=== PATIENT | female | born 1970 | race Caucasian/White ===

== ENCOUNTER → 2020-08-16 | Outpatient (CLI) | payer OTHER ==
[~2020-08-16] MED LIST: ACETAMINOPHEN-1 EAC1 PO; AMOXICILLIN 50500 MG PO; CARISOPRODOL PO; COMPAZINE10 MG PO; DYRENIUM100 MG PO; FLAGYL500 MG PO; HYDROCODONE-AP1 EAC6 PO; MEDROL DOSPAK21 TA1 PO; NORCO 5-325 TA1 EACH PO; SOMA250 MG; VENTOLIN17 GM INH; XANAX PO; ZPAK PO
[2020-08-16 10:13] LABS: URINE BILIRUBIN NEGATIVE (Negative); URINE BLOOD NEGATIVE (Negative); URINE CLARITY CLEAR; URINE COLOR YELLOW; URINE GLUCOSE-RANDOM* NEGATIVE (Negative); URINE KETONES NEGATIVE (Negative); URINE LEUKOCYTES-REFLEX TRACE (Negative); URINE NITRITE-REFLEX NEGATIVE (Negative); URINE PROTEIN (DIPSTICK) NEGATIVE (Negative); URINE SPECIFIC GRAVITY 1.015 (1.005-1.035); URINE UROBILINOGEN 0.2 E.U./dl (0.2-1.0)
[2020-08-16 10:14] LABS: ABSOLUTE NEUTROPHILS 6.8 thou/uL (1.4-8.2); BASOPHILS 1.1 % (0.0-2.0); EOSINOPHILS 2.6 % (0.0-3.0); HEMATOCRIT 45.9 % (37.0-47.0); HEMOGLOBIN 15.7 gm/dL (12.0-15.0); LYMPHOCYTES 28.9 % (24.0-44.0); MCH 32.7 pg (26.0-34.0); MCHC 34.1 g/dL (28.0-37.0); PLATELET COUNT 332 thou/uL (150-400); POLYS 61.4 % (36.0-66.0); RBC 4.79 mil/uL (4.20-5.00); RDW 12.8 % (10.5-14.5)
[2020-08-16 10:25] LABS: ALBUMIN 4.2 g/dL (3.4-5.0); ANION GAP 10 mmol/L (7-16); BUN 12 mg/dL (7-18); CALCIUM 9.4 mg/dL (8.5-10.1); CHLORIDE 105 mmol/L (98-107); CHOLESTEROL 266 mg/dL (<200); CO2 26 mmol/L (21-32); CREATININE 0.7 mg/dL (0.6-1.0); GLUCOSE 96 mg/dL (74-106); HDL CHOLESTEROL 49 mg/dL (>40); LDL CHOLESTEROL 187 mg/dL (<100); POTASSIUM 4.4 mmol/L (3.5-5.1); SGOT 23 U/L (15-37); SGPT 25 U/L (30-65); SODIUM 141 mmol/L (136-145); TC:HDL 5.4 Ratio (Not establshd); TOTAL BILIRUBIN 0.4 mg/dL (0.2-1.0); TOTAL PROTEIN 7.8 g/dL (6.4-8.2); TRIGLYCERIDE 153 mg/dL (<150); VLDL 31 mg/dL (<40)
== END ==
LOC: LAB 07:48
PROVIDERS: ATTEND Family Medicine
DX: Z00.00 Encounter for general adult medical examination without abnormal findings (principal)

== ENCOUNTER → 2020-09-04 | Outpatient (CLI) | payer OTHER | LOC: MRI 08:02 | PROVIDERS: ATTEND Family Medicine | DX: M47.816 Spondylosis without myelopathy or radiculopathy, lumbar region (principal); M54.5 Low back pain ==

== ENCOUNTER → 2020-11-28 | Outpatient (CLI) | payer OTHER ==
[~2020-11-28] VITALS: Ht 162.6 cm; Wt 69.4 kg
[~2020-11-28] MED LIST changes: +ADVIL200 M3 PO; +EFFEXOR XR37.5 MG PO; +MAGNESIUM250 M1 PO; +METHOCARBAMOL500 M2 PO; +NEURONTIN 300M300 M2 PO; +OMEPRAZOLE 20 M20 M1 PO; +PERCOCET 5-3251 EACH PO; +XANAX2 MG PO; +ZANAFLEX4 MG PO
[2020-11-28 10:05] VITALS: BP 140/95
--- NOTE | 2020-11-28 10:59 | NUR ---
Pain Clinic Assessment: 1. History of Osteoarthritis: LUMBAR SPINE History of Rheumatoid Arthritis: DENIES 2. Height: 5 ft. 4 in. 162.6 cm. Weight: 153.0 lb. oz. 69.400 kg. Patient's BMI: 26.2 3. Vital Signs: BP: 140/95 Pulse: 92 Resp: 16 Temp: 02 Sat: 98 ECG Mon: 4. Pain Intensity: 4 TO 10 5. Fall Risk: Dizziness: N Needs help standing or walking: N Fallen in the last 3 months: N Fall risk comments: 6. Patient on Blood Thinner: None 7. History of Hypertension: Y 8. Opioid Therapy greater than 6 weeks: N Opiate Contract Signed: 9. Risk Assessment Tool Provided: MOD-4 10. Functional Assessment Tool: 50/70 11. Recreational Drug Use: Past greater than 3 mos Drug Type: MARIJUANA Tobacco Use: Current Every Day Smoker Tobacco Type: Cigarettes Amount or Packs/day: 1/2 PK/D How Many Years: Alcohol Use: Yes Frequency: Weekly Quant: 8
== END ==
LOC: PAIN 07:07
PROVIDERS: ATTEND Anesthesiology Pain Medicine
DX: G89.29 Other chronic pain (principal); M54.16 Radiculopathy, lumbar region; M19.90 Unspecified osteoarthritis, unspecified site; I10 Essential (primary) hypertension; F10.10 Alcohol abuse, uncomplicated; Z79.891 Long term (current) use of opiate analgesic; Z79.899 Other long term (current) drug therapy

== ENCOUNTER → 2020-12-05 | Outpatient (CLI) | payer OTHER ==
[~2020-12-05] VITALS: Ht 162.6 cm; Wt 71.4 kg
[2020-12-05 09:15] VITALS: BP 134/94
--- NOTE | 2020-12-05 09:34 | NUR ---
Pain Clinic Assessment: 1. History of Osteoarthritis: LUMBAR SPINE History of Rheumatoid Arthritis: DENIES 2. Height: 5 ft. 4 in. 162.6 cm. Weight: 157.4 lb. oz. 71.396 kg. Patient's BMI: 27.0 3. Vital Signs: BP: 134/94 Pulse: 94 Resp: 16 Temp: 02 Sat: 99 ECG Mon: 4. Pain Intensity: 5 W/ACTIVITY 5. Fall Risk: Dizziness: N Needs help standing or walking: N Fallen in the last 3 months: N Fall risk comments: 6. Patient on Blood Thinner: None 7. History of Hypertension: Y 8. Opioid Therapy greater than 6 weeks: N Opiate Contract Signed: 9. Risk Assessment Tool Provided: MOD-4 10. Functional Assessment Tool: 50/70 11. Recreational Drug Use: Past greater than 3 mos Drug Type: Tobacco Use: Current Every Day Smoker Tobacco Type: Cigarettes Amount or Packs/day: 1/2 How Many Years: Alcohol Use: Yes Frequency: Quant:
== END | disposition home or self-care (01) ==
LOC: PAIN 08:39
PROVIDERS: ATTEND Anesthesiology Pain Medicine
DX: M54.16 Radiculopathy, lumbar region (principal); M54.5 Low back pain; G89.29 Other chronic pain; I10 Essential (primary) hypertension; M19.90 Unspecified osteoarthritis, unspecified site; F32.9 Major depressive disorder, single episode, unspecified; G47.00 Insomnia, unspecified; F17.210 Nicotine dependence, cigarettes, uncomplicated; Z98.890 Other specified postprocedural states; Z79.899 Other long term (current) drug therapy; Z88.2 Allergy status to sulfonamides; Z88.8 Allergy status to other drugs, medicaments and biological substances

== ENCOUNTER → 2021-01-16 | Outpatient (CLI) | payer OTHER ==
[~2021-01-16] VITALS: Ht 162.6 cm; Wt 70.0 kg
[2021-01-16 08:16] VITALS: BP 134/92
--- NOTE | 2021-01-16 08:32 | NUR ---
Pain Clinic Assessment: 1. History of Osteoarthritis: LUMBAR SPINE History of Rheumatoid Arthritis: DENIES 2. Height: 5 ft. 4 in. 162.6 cm. Weight: 154.4 lb. oz. 70.035 kg. Patient's BMI: 26.5 3. Vital Signs: BP: 134/92 Pulse: 93 Resp: 16 Temp: 02 Sat: 98 ECG Mon: 4. Pain Intensity: 1-4 W/ACTIVITY 5. Fall Risk: Dizziness: N Needs help standing or walking: N Fallen in the last 3 months: N Fall risk comments: 6. Patient on Blood Thinner: None 7. History of Hypertension: Y 8. Opioid Therapy greater than 6 weeks: N Opiate Contract Signed: 9. Risk Assessment Tool Provided: MOD-4 10. Functional Assessment Tool: 50/70 11. Recreational Drug Use: Past greater than 3 mos Drug Type: Tobacco Use: Current Every Day Smoker Tobacco Type: Cigarettes Amount or Packs/day: < 1/2 How Many Years: Alcohol Use: Yes Frequency: Special Occasions Quant: 1-2
== END | disposition home or self-care (01) ==
LOC: PAIN 06:56
PROVIDERS: ATTEND Anesthesiology Pain Medicine
DX: M54.16 Radiculopathy, lumbar region (principal); G89.29 Other chronic pain; I10 Essential (primary) hypertension; M19.90 Unspecified osteoarthritis, unspecified site; M54.5 Low back pain; F32.9 Major depressive disorder, single episode, unspecified; F17.210 Nicotine dependence, cigarettes, uncomplicated; Z98.890 Other specified postprocedural states; Z79.899 Other long term (current) drug therapy; Z88.2 Allergy status to sulfonamides; Z88.8 Allergy status to other drugs, medicaments and biological substances

== ENCOUNTER → 2021-01-30 | Outpatient (CLI) | payer OTHER | LOC: ULTRA 11:32 | PROVIDERS: ATTEND Family Medicine | DX: N95.0 Postmenopausal bleeding (principal) ==

== ENCOUNTER → 2021-02-06 | Outpatient (CLI) | payer OTHER ==
[2021-02-06 12:52] LABS: ABSOLUTE NEUTROPHILS 9.6 thou/uL (1.4-8.2); BASOPHILS 0.6 % (0.0-2.0); EOSINOPHILS 0.7 % (0.0-3.0); HEMATOCRIT 43.8 % (37.0-47.0); HEMOGLOBIN 15.2 gm/dL (12.0-15.0); LYMPHOCYTES 21.3 % (24.0-44.0); MCH 34.2 pg (26.0-34.0); MCHC 34.7 g/dL (28.0-37.0); MCV 98.7 fL (80.0-100.0); MONOCYTES 6.4 % (1.0-8.0); PLATELET COUNT 269 thou/uL (150-400); RBC 4.44 mil/uL (4.20-5.00); RDW 13.4 % (10.5-14.5); WBC 13.5 thou/uL (4.0-11.0)
[2021-02-06 13:35] LABS: CALCIUM 9.1 mg/dL (8.5-10.1); CREATININE 0.8 mg/dL (0.6-1.0); TOTAL BILIRUBIN 0.7 mg/dL (0.2-1.0); TOTAL PROTEIN 7.7 g/dL (6.4-8.2)
[2021-02-06 13:39] LABS: POTASSIUM 4.6 mmol/L (3.5-5.1)
== END ==
LOC: LAB 12:15
PROVIDERS: ATTEND Family Medicine
DX: R10.2 Pelvic and perineal pain (principal)

== ENCOUNTER → 2021-02-08 | Outpatient (CLI) | payer OTHER ==
[~2021-02-08] VITALS: Ht 162.6 cm; Wt 70.2 kg
[2021-02-08 08:15] VITALS: BP 116/96
--- NOTE | 2021-02-08 08:25 | NUR ---
Pain Clinic Assessment: 1. History of Osteoarthritis: LUMBAR SPINE History of Rheumatoid Arthritis: DENIES 2. Height: 5 ft. 4 in. 162.6 cm. Weight: 154.8 lb. oz. 70.217 kg. Patient's BMI: 26.6 3. Vital Signs: BP: 116/96 Pulse: 107 Resp: 16 Temp: 02 Sat: 98 ECG Mon: 4. Pain Intensity: 4 W/ACTIVITY 5. Fall Risk: Dizziness: N Needs help standing or walking: N Fallen in the last 3 months: N Fall risk comments: 6. Patient on Blood Thinner: None 7. History of Hypertension: Y 8. Opioid Therapy greater than 6 weeks: N Opiate Contract Signed: 9. Risk Assessment Tool Provided: MOD-4 10. Functional Assessment Tool: 50/70 11. Recreational Drug Use: Past greater than 3 mos Drug Type: Tobacco Use: Current Every Day Smoker Tobacco Type: Amount or Packs/day: How Many Years: Alcohol Use: Yes Frequency: Quant:
== END ==
LOC: PAIN 06:41
PROVIDERS: ATTEND Anesthesiology Pain Medicine
DX: N88.8 Other specified noninflammatory disorders of cervix uteri (principal); M47.26 Other spondylosis with radiculopathy, lumbar region; M48.061 Spinal stenosis, lumbar region without neurogenic claudication; M47.27 Other spondylosis with radiculopathy, lumbosacral region; M48.07 Spinal stenosis, lumbosacral region; M54.30 Sciatica, unspecified side; I10 Essential (primary) hypertension; M19.90 Unspecified osteoarthritis, unspecified site; G89.29 Other chronic pain; Z79.899 Other long term (current) drug therapy; Z88.8 Allergy status to other drugs, medicaments and biological substances

== ENCOUNTER → 2021-04-05 | Outpatient (CLI) | payer OTHER ==
[~2021-04-05] VITALS: Ht 162.6 cm; Wt 70.6 kg
[2021-04-05 08:33] VITALS: BP 133/103
--- NOTE | 2021-04-05 08:39 | NUR ---
Pain Clinic Assessment: 1. History of Osteoarthritis: LUMBAR SPINE History of Rheumatoid Arthritis: DENIES 2. Height: 5 ft. 4 in. 162.6 cm. Weight: 155.6 lb. oz. 70.580 kg. Patient's BMI: 26.7 3. Vital Signs: BP: 133/103 Pulse: 98 Resp: 16 Temp: 02 Sat: 100 ECG Mon: 4. Pain Intensity: 6-7 5. Fall Risk: Dizziness: N Needs help standing or walking: N Fallen in the last 3 months: N Fall risk comments: 6. Patient on Blood Thinner: None 7. History of Hypertension: Y 8. Opioid Therapy greater than 6 weeks: N Opiate Contract Signed: 9. Risk Assessment Tool Provided: MOD-4 10. Functional Assessment Tool: 50 11. Recreational Drug Use: Past greater than 3 mos Drug Type: Tobacco Use: Current Every Day Smoker Tobacco Type: Amount or Packs/day: How Many Years: Alcohol Use: Yes Frequency: Quant:
== END | disposition home or self-care (01) ==
LOC: PAIN 06:58
PROVIDERS: ATTEND Anesthesiology Pain Medicine
DX: M54.16 Radiculopathy, lumbar region (principal); M54.41 Lumbago with sciatica, right side; G89.29 Other chronic pain; I10 Essential (primary) hypertension; M19.90 Unspecified osteoarthritis, unspecified site; F17.210 Nicotine dependence, cigarettes, uncomplicated; Z98.890 Other specified postprocedural states; Z79.899 Other long term (current) drug therapy; Z88.8 Allergy status to other drugs, medicaments and biological substances; Z88.2 Allergy status to sulfonamides